=== PATIENT | male | born 1975 | race African-American/Black ===

== ENCOUNTER 2019-07-24 02:11 | Emergency (ER) | payer OTHER, SELFPAY ==
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
[2019-07-24 02:17] VITALS: BP 141/88; PULSE 113; RESP 22; TEMP 36.7; O2SAT 100
[2019-07-24 03:47] VITALS: BP 143/95; PULSE 109; RESP 18; O2SAT 100
[2019-07-24] MEDS: TETANUS,DIPHTHERIA,AC PERTUSSIS ADULT 0.5 ML (ADACEL) IM (04:23)
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
[2019-07-24] MEDS: SODIUM CHLORIDE 0.9% IV 1,000 ML 999 ML IV CONT (05:29)
[2019-07-24 05:44] LABS: Basophils Absolute Auto 0.1 K/mm3 (0.0-0.1); Basophils Percent Auto 0.3 % (0.2-1.2); Eosinophils Percent Auto 0.1 % (0-4.4); Hematocrit 45.4 % (42.0-52.0); Hemoglobin 15.5 g/dL (14.0-18.0); Immature Granulocyte Percent A 0.6 % (0-0.5); Lymphocytes Absolute Auto 1.26 K/mm3 (0.9-3.2); Lymphocytes Percent Auto 7.6 % (18.3-44.2); Mean Corpuscular HGB Conc 34.1 g/dl (32-36); Mean Corpuscular Hemoglobin 32.3 pg (26-34); Mean Corpuscular Volume 94.6 fl (80-100); Mean Platelet Volume 8.4 fl (7.4-10.4); Monocytes Percent Auto 6.2 % (2.6-8.5); Neutrophils Absolute Auto 14.2 K/mm3 (1.3-6.7); Neutrophils Percent Auto 85.2 % (45.5-73.1); Platelet Count Result 392 k/mm3 (150-375); Red Cell Distribution Width 14.3 % (11.5-14.5); White Blood Count 16.7 K/mm3 (4.5-10.0)
[2019-07-24 05:49] LABS: Ethanol 245 mg/dL (<10)
[2019-07-24 05:54] LABS: Blood Urea Nitrogen 13 mg/dL (9-20); Calcium 9.5 mg/dL (8.4-10.2); Carbon Dioxide 26 mmol/L (22-30); Chloride 108 mmol/L (98-107); Estimated CRCL calculation 78 ml/min; Estimated Glomerular Filt Rate > 60; Glucose 103 mg/dL (75-110); Potassium 3.8 mmol/L (3.4-5.0); Sodium 147 mmol/L (137-145)
[2019-07-24 06:43] VITALS: BP 105/52; PULSE 100; RESP 18; O2SAT 98
--- NOTE | 2019-07-31 19:42 | PC.NURSE ---
LATE ENTRY This note is being entered to document information to the patient's record. The following information was omitted on [07/24/2019], Ofirmev stopped at 0516 and NS stopped at 0610.
== END 2019-07-24 06:45 | disposition home or self-care (01) ==
PROVIDERS: Emergency Provider Emergency Medicine
DX: S02.31XA Fracture of orbital floor, right side, initial encounter for closed fracture (principal); S02.831A Fracture of medial orbital wall, right side, initial encounter for closed fracture; S02.642A Fracture of ramus of left mandible, initial encounter for closed fracture; S02.631A Fracture of coronoid process of right mandible, initial encounter for closed fracture; Z23 Encounter for immunization; Y04.2XXA Assault by strike against or bumped into by another person, initial encounter
CPT/HCPCS: 36415; 70450; 70486; 72125; 80048; 80307; 85025; 90471; 90715; 96361; 96374; 99284; J0131; J7030